=== PATIENT | female | born 1995 | race Caucasian/White ===

== ENCOUNTER → 2016-08-29 | Outpatient (CLI) | payer OTHER ==
[~2016-08-29] MED LIST: ADVINUNK; CLXUNK; MOME50SP5; SNG10 PO; ZNTUNK
--- NOTE | 2016-08-29 11:14 | DIAGNOSTIC IMAGING REPORT ---
MRI OF THE BRAIN WITHOUT CONTRAST CLINICAL HISTORY: Increasing headache severity. COMPARISON STUDY: 07/19/2010 FINDINGS: Sagittal T1, axial diffusion, proton density and T2 weighted axial, coronal FLAIR, and axial T1-weighted images were acquired. 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 Axial diffusion-weighted images reveal no evidence of acute or subacute infarction. There is no evidence of ventricular dilatation. Proton density T2-weighted and FLAIR images reveal scattered foci of increased T2 signal within the white matter, likely on a small vessel basis. There are no abnormal flow voids. There is bilateral maxillary sinus and sphenoid sinus polyp/retention cysts. IMPRESSION: Paranasal sinus disease. Stable 8 mm pineal cyst. Otherwise normal noncontrast head CT. Electronically signed by: Solitario Morales M.D. 08/29/2016 11:12 AM Dictated Date/Time: 08/29/2016 11:05 AM
== END | disposition home or self-care (01) ==
LOC: C.MRIBC 10:03
DX: G44.53 Primary thunderclap headache (principal); J32.9 Chronic sinusitis, unspecified; E34.8 Other specified endocrine disorders

== ENCOUNTER → 2017-06-29 | Outpatient (CLI) | payer BC ==
--- NOTE | 2017-06-29 12:19 | DIAGNOSTIC IMAGING REPORT ---
SINUS CT WITHOUT CONTRAST CLINICAL HISTORY: Headache. Chronic sinusitis. COMPARISON STUDY: Sinus CT September 22, 2010. Technique: Helical axial images of the sinuses were obtained without IV contrast. Coronal reformats were viewed. A dose lowering technique was utilized adhering to the principles of ALARA. CT DOSE: 277.22 mGycm FINDINGS: Visualized portions of the intracranial contents are unremarkable on this unenhanced examination. The mastoid air cells are clear. Orbits are unremarkable. Note is made of mild rightward deviation pf the nasal septum. A 2.5 cm left maxillary sinus with acute retention cyst is noted as well as a 2.6 cm left sphenoid sinus mucous retention cyst. There is moderate polypoid mucosal thickening of the right maxillary sinus. There is mild mucosal thickening of the ethmoid sinuses. The ostiomeatal complexes are patent. Major drainage pathways are patent. There is no bony destruction. The cribriform plate is intact. There are no air-fluid levels. IMPRESSION: 1. Several sinus mucous retention cysts and moderate polypoid mucosal thickening of the right maxillary sinus. No CT evidence for acute sinusitis. Patent major drainage pathways. 2. Mild rightward deviation of the nasal septum. Electronically signed by: Zhang Ritter M.D. 06/29/2017 12:18 PM Dictated Date/Time: 06/29/2017 12:14 PM
== END | disposition home or self-care (01) ==
LOC: C.CTS 12:02
DX: J32.9 Chronic sinusitis, unspecified (principal); J34.1 Cyst and mucocele of nose and nasal sinus; Z79.2 Long term (current) use of antibiotics